=== PATIENT | male | born 1960 | race Caucasian/White ===

== ENCOUNTER 2020-04-30 16:25 | Inpatient (IN) | payer OTHER ==
[2020-04-30] VITALS (15 sets, daily range): BP systolic 81–120; BP diastolic 56–94
[~2020-04-30] VITALS: Ht 177.8 cm; Wt 70.0 kg
--- NOTE | 2020-04-30 16:28 | NUR ---
PATIENT TO ROOM VIA WHEELCHAIR AND PHYSICIAN NOTIFIED OF PATIENT STSTUS
[2020-04-30] MEDS ORDERED: FLOVENT DI250 MCG/BL PO (17:35)
[2020-04-30] MEDS ORDERED: GERI-TUSSI100 MG/51 PO (17:37)
--- NOTE | 2020-04-30 17:37 | NUR ---
PT RESTING IN BED. 2L/NC PLACED ON PT PER MD ORDERS. 97% SATURATIONS. VITALS STABLE ON MONITOR. CALL LIGHT WITHIN REACH, SECURITY AT BEDSIDE.
[2020-04-30 17:44] LABS: HEMATOCRIT 46.9 % (39.0-50.0); HEMOGLOBIN 14.9 g/dl (14.0-18.0); IMMATURE GRANULOCYTES 0.4 % (0.0-5.0); MEAN CELL VOLUME 89.3 fL CALC (80.0-100.0); MEAN CORPUSCULAR HGB 28.4 pG CALC (26.0-32.0); MEAN CORPUSCULAR HGB CONC 31.8 g/dL CAL (32.0-36.0); NEUT# 6.5 thou/uL (1.82-7.42); RED BLOOD COUNT 5.25 mill/uL (4.70-6.10); RED CELL DISTRI WIDTH 14.4 % (11.5-15.5)
[2020-04-30 18:04] LABS: ALBUMIN 3.5 g/dL (3.2-5.0); ALKALINE PHOSPHATASE 62 u/l (38-126); ANION GAP 11 (6-22 (CALC)); BILIRUBIN, TOTAL 0.7 mg/dL (0.0-1.4); BUN 25 mg/dL (9-20); BUN/CREATININE RATIO 18 (12-20 (CALC)); CARBON DIOXIDE 26 mmol/l (22-30); CHLORIDE 106 mmol/l (95-108); CREATININE 1.4 mg/dL (0.7-1.3); GFR 52 ML/MIN (>=60 (CALC)); GFR FOR AFR.AMER. > 60 ML/MIN (>=60 (CALC)); LIPASE 78 u/l (23-300); POTASSIUM 4.4 mmol/l (3.5-5.1); SGOT/AST 132 u/l (17-59); SODIUM 138 mmol/l (137-146)
--- NOTE | 2020-04-30 18:48 | NUR ---
PT RESTING COMFORTABLE. BIPAP IN PLACE. IV MEDS INFUSING WITHOUT DIFFICULTY. VITALS STABLE ON MONITOR. SECUIRTY AT BEDSIDE.
--- NOTE | 2020-04-30 18:58 | NUR ---
REPORT GIVEN TO MARSHA PAIGE.
--- NOTE | 2020-04-30 19:00 | NUR ---
RECEIVED REPORT FROM BOUBACAR, RN. PT ADMITTED. GUARDS OUTSIDE DOOR. PT HAS LEFT ANKLE CUFFED TO THE BED. 950CC OF URINE OUT.
--- NOTE | 2020-04-30 19:40 | NUR ---
REPORT GIVEN TO MARSHA FRIED
--- NOTE | 2020-04-30 19:50 | NUR ---
Admission Note Report Given to: MARSHA FRIED Transported by: Wheelchair X Stretcher Transported with: X Nurse Transporter X Patent IV X O2 X Human Resources Services Specialist Location: X ICU MS2 NITRO DRIP INFUSING.
--- NOTE | 2020-04-30 20:20 | NUR ---
PT WAS ADMIITED TO ICU VIA STRETCHER. PT BEING ADMITTED FOR DIAGNOSIS OF SOB RELATED TO COVID POSITIVE. PT IS ALERT AND ORIENTED AND ABLE TO MAKE NEEDS KNOWN. WHEEZING NOTED IN UPPER LOBES OF LUNGS AND DIMINISHED IN LOWER LOBES. CURRENTLY ON NITRO DRIP AT 5MCG/MIN AND BP 96/81 HR 121 RESPIRATIONS 37 BREATHS PER MINUTE. PT HAS PITTING EDEMA +2 IN BILATERAL LOWER EXTREMITIES. ABDOMEN IS DISTENDED AND FIRM BUT BOWEL SOUNDS NOTED IN ALL QUADRANTS. STATED HE HAD SMALL BOWEL MOVEMENT TODAY. RESPIRATORY THERAPIST GIVING DUONEB TREATMENT AND PT REMOVED FROM BIPAP AND PLACED ON 2LNC. HOB ELEVATED AND WILL CONTINUE TO OBSERVE.
--- NOTE | 2020-04-30 20:35 | NUR ---
BP 98/72hr 118 AND RESPIRATION IS 32 AND LABORED. HEART RHYTHM CONTINUES TO BE TACYCARDIC. PT STATES HE FEELS BETTER. CONTINUES ON OXYGEN THERAPY AT 2LNC AND OXYGEN LEVEL 98%.
--- NOTE | 2020-04-30 20:48 | NUR ---
PT IN BED WITH HOB ELEVATED. NITRO TITRATED UP TO 15MCG/MIN DUE TO RAPID RESPIRATIONS. BP 120/94 HR 118 AND RESPIRATION ARE 32 BREATHS PER MINUTE. CONTINUES ON 2LNC WITH O2 SAT 98%. WILL CONTINUE TO OBSERVE.
--- NOTE | 2020-04-30 21:08 | NUR ---
PT CONTINUES ON NITRO DRIP AT 20MCG/MIN. RESPIRATION CONITNUES TO BE RAPID AT 32 BREATHS PER MINUTE. HEART RHYTHM CONTINUES TO TACHYCARDIC AT 121 BPM. PT STATES HE FEELS MUCH BETTER. NON PRODUCTIVE COUGH NOTED. CONTINUES ON 2LNC. FLUIDS GIVEN AND TOLERATED WELL.
--- NOTE | 2020-04-30 21:40 | NUR ---
BP DECREASED TO 85/68. HR 114 AND RESPIRATION 30 BREATHS PER MINUTE. mD CALLED AND MADE AWARE THAT NITRO DRIP WAS STOPPED DUE TO LOW BP AND NORMAL SALINE RUNNING AT 150ML PER HOUR TO INCREASE BP. MD GAVE ORDER TO GOR MAGNESIUM LEVEL AND EKG BY RESPIRATORY. RECHECKED BP AND 101/71. NORMAL SALINE CURRENTLY RUNNING AT 50ML/HR AND PRESCRIBED.
--- NOTE | 2020-04-30 22:00 | NUR ---
EKG WAS DONE AND SCANNED SHOWS SINUS TACHYCARDIA. PT IN BED WITH EYES OPEN WATCHING TV AND CALM AND COOPERATIVE. AFEBRILE TEMPT 97.2. HR 112 AND BP 98/56. HOB ELEVATED. CONTINENT OF B/B ANF USES URINAL WITH NO COMPLICATIONS. IV SITE TO RIGHT AC IS INTACT WITH NO S/S OF INFECTION/INFILTRATION.
--- NOTE | 2020-04-30 23:10 | NUR ---
RESPIRATORY THERAPIST IN ROOM WITH PT GIVING NEBULIZER TREATMENT AND PT TOLERATING WELL. PT TO BE PLACED BACK ON BIPAP TO FACILITATE BREATHING PER PT REQUEST PT HAS GAURDS AT BEDSIDE. BP 102/68 HR 112 RESPIRATIONS 28 BEATS PER MINUTE. MEDICATIONS GIVEN PRESCRIBED. DENIES PAIN OR DISCOMFORT. NORMAL SALINE 0.9% RUNNING AT 50ML/HR AND TOLERATING WELL. WILL CONTINUE TO OBSERVE
[2020-05-01] VITALS (11 sets, daily range): BP systolic 79–126; BP diastolic 61–83
--- NOTE | 2020-05-01 00:54 | NUR ---
pt in bed with eyes closed. no s/s of respiratory distress. O2 sat 97% on bi-pap. Pt denies pain and distress. bp 121/74 HR 110 Respiratory 26 breaths per minute. Continent of b/b and uses urinal with no complications noted. Knee high teds in place. Troponin was drawn by lab. Wheezing noted in bilateral upper lung which has improved from admission. Tolerating fluids well. will continue to observe
--- NOTE | 2020-05-01 01:00 | NUR ---
pt in bed with eys closed. Able to make needs known and easily aroused. Respirations are even and nonlabored. continues with Bi-pap in place to faciltate breathing. HOB elevated and call light within reach will continue to observe. nonproductive cough noted. Gaurds continue at bedside.
--- NOTE | 2020-05-01 02:00 | NUR ---
Pt in bed with eyes closed. No respiratory distress noted. will continue to observe
--- NOTE | 2020-05-01 03:25 | NUR ---
Pt in bed with eyes closed. Continues on Bipap with no respiratory distress noted. No audible wheezing noted. HOB elevated. Knee high Miguel hose in place. Call light within reacg. Will continue to observe
--- NOTE | 2020-05-01 04:15 | NUR ---
PT IN BED WITH EYES CLOSED. NO S/S OF DISTRESS. EASILY AROUSED. CONTINUES ON BIPAP AT 97-98%. CALL LIGHT WITHIN REACH. CONTINUES WITH GAURDS AT BEDSIDE. WILL CONTINUE TO OBSERVE.
[2020-05-01 05:24] LABS: URINE BILIRUBIN - DIPSTICK NEGATIVE (NEGATIVE); URINE BLOOD DIPSTICK NEGATIVE (NEGATIVE); URINE COLOR YELLOW; URINE GLUCOSE - DIPSTICK NEGATIVE (NEGATIVE); URINE KETONE TRACE mg/dL (NEGATIVE); URINE LEUK ESTERASE NEGATIVE (NEGATIVE); URINE NITRITE - DIPSTICK NEGATIVE (Negative); URINE PROTEIN - DIPSTICK NEGATIVE (NEG-TRACE); URINE UROBILINOGEN - DIPSTICK 0.2 E.U./dL (0.2)
--- NOTE | 2020-05-01 05:30 | NUR ---
MD BURDICK AWARE OF PT RUNNING VTACH GREATER THAN 2 3-4 TIMES AN HOURS AND NO NEW ORDERS AT THIS TIME. NO NEW ORDERS AT THIS TIME. PT DENIES CHEST PAIN/S/S OF DISTRESS. TOLERATING FLUIDS WELL. HOB ELEVATED AND BI-PAP REMOVED AND PLACED ON 2LNC WITH O2 SAT 97%. CALL LIGHT IS WITHIN REACH. WILL CONTINUE TO OBSERVE. DECLINED FOOD OFFERED STATES HE WILL WAIT TO EAT BREAKFAST
[2020-05-01 05:43] LABS: HEMOGLOBIN 14.5 g/dl (14.0-18.0); IMMATURE GRANULOCYTES 0.5 % (0.0-5.0); MEAN CELL VOLUME 89.6 fL CALC (80.0-100.0); MEAN CORPUSCULAR HGB 28.9 pG CALC (26.0-32.0); MEAN CORPUSCULAR HGB CONC 32.2 g/dL CAL (32.0-36.0); NEUT# 5.22 thou/uL (1.82-7.42); RED BLOOD COUNT 5.02 mill/uL (4.70-6.10); RED CELL DISTRI WIDTH 14.4 % (11.5-15.5)
[2020-05-01 06:11] LABS: ALBUMIN 3.4 g/dL (3.2-5.0); ALKALINE PHOSPHATASE 60 u/l (38-126); ANION GAP 14 (6-22 (CALC)); BILIRUBIN, TOTAL 0.8 mg/dL (0.0-1.4); BUN 22 mg/dL (9-20); BUN/CREATININE RATIO 20 (12-20 (CALC)); CALCULATED LDLCHOLESTEROL 90 mg/dL (62-129 (CALC)); CARBON DIOXIDE 22 mmol/l (22-30); CHLORIDE 106 mmol/l (95-108); CHOLESTEROL HDL RATIO 4.2 (<4.4 (CALC)); CREATININE 1.1 mg/dL (0.7-1.3); GFR > 60 ML/MIN (>=60 (CALC)); GFR FOR AFR.AMER. > 60 ML/MIN (>=60 (CALC)); HDL CHOLESTEROL 35 mg/dL (>=40); MAGNESIUM 1.9 mg/dL (1.6-2.3); POTASSIUM 4.5 mmol/l (3.5-5.1); SGOT/AST 88 u/l (17-59); SODIUM 138 mmol/l (137-146); TOTAL CHOLESTEROL 145 mg/dl (0-199); TOTAL TRIGLYCERIDES 102 mg/dl (30-149); VLDL CHOLESTROL 20 mg/dl (4-45 (CALC))
--- NOTE | 2020-05-01 07:12 | NUR ---
PT SEEN AWAKE, ALERT, ORIENTED X 3. LUNGS ARE SLIGHTLY COARSE THROUGHOUT WITH DIMINISHED RIGHT BASE, 2 LPM NC. IV HEPLOCKED. TEDs IN PLACE. PT AWARE OF HIS BEING COVID POSITIVE. GUARDS X 2 POSITIONED OUTSIDE ROOM.
--- NOTE | 2020-05-01 07:22 | NUR ---
PAKO STANDBY. PT ON 3L MO.
--- NOTE | 2020-05-01 08:59 | NUR ---
NEB TX NOT GIVEN PENDING LAB RESULTS
--- NOTE | 2020-05-01 14:22 | NUR ---
PT UNEVENTFUL AFTERNOON, RESTS IN THE BED IN NO DISTRESS. NC 1 LTR SHOWS 94-96%, NO SHORTNESS OF BREATH OR CHEST PAIN.
--- NOTE | 2020-05-01 19:20 | NUR ---
awake. nad. o2 cont per nc. freelance art director shows sinus tach freq pvcs. #20 rac. po fluids restricted. voids per urinal. shackles to lt ankle. fall & air/contact precautions & guards x2 @ bedside.
--- NOTE | 2020-05-01 22:00 | NUR ---
eyes closed. nad. director of cardiac cath lab shows sinus tach hr 120.
[2020-05-02] VITALS (11 sets, daily range): BP systolic 96–131; BP diastolic 52–87
--- NOTE | 2020-05-02 00:01 | NUR ---
eyes closed. nad. o2 cont per nc. radiographer cardiac catheterization shows sinus tach hr 108. guards x2 @ bedside.
--- NOTE | 2020-05-02 02:00 | NUR ---
resting quietly. nad. front desk monitor shows sinus tach hr 112.
--- NOTE | 2020-05-02 05:00 | NUR ---
[facility] staff called this television writer. update given.
--- NOTE | 2020-05-02 05:45 | NUR ---
amb self to br for bm then back to bed. kostas well.
--- NOTE | 2020-05-02 07:40 | NUR ---
ASSESSMENT IS COMPLETED: IV SITE IS FREE FROM REDNESS OR EDEMA. HR IS REG,PULSES ARE STRONG X4, ABD IS SOFT WITH ACTIVE BS. BREATH SOUNDS ARE CELAR AND DIMINISHED. O2 @ 3LITERS WITH NC. 2 GUARDS OUTSIDE OF THE ROOM. NO DISTRESS NOTED.
--- NOTE | 2020-05-02 10:01 | NUR ---
PT CONTINEUS TO THROW EXTRA BEATS.
--- NOTE | 2020-05-02 12:00 | NUR ---
MARGARITA LARSON IN TO SEE DR MARINA RE: VTACH, WILL REEVALUATE A FAR DISCHARGE PLANS . DISCHARGE PLANS ARE ON HOLD AT THIS TIME. WILL KEEP A CLOSE EYE ON PT WITH LABS AND EKG RATE. CONTINUE WITH 2 GUARDS.
--- NOTE | 2020-05-02 12:00 | NUR ---
PT IS RELAXING IN BED WITH NO DISTRESS NTOED, IV SITE IS FREE FROM REDNESS OR EDEMA.
[2020-05-02 12:39] LABS: ANION GAP 16 (6-22 (CALC)); BUN 34 mg/dL (9-20); BUN/CREATININE RATIO 27 (12-20 (CALC)); CARBON DIOXIDE 22 mmol/l (22-30); CHLORIDE 103 mmol/l (95-108); CREATININE 1.3 mg/dL (0.7-1.3); GFR 56 ML/MIN (>=60 (CALC)); GFR FOR AFR.AMER. > 60 ML/MIN (>=60 (CALC)); MAGNESIUM 2.2 mg/dL (1.6-2.3); SODIUM 136 mmol/l (137-146)
--- NOTE | 2020-05-02 14:03 | NUR ---
SPOKE WITH DR MARINA WILL WAIT UNTIL TOMORROW DUE TO IRREGULAR HEART RATE AND INCREASED PVC'S WITH SOME V TACH.
--- NOTE | 2020-05-02 15:56 | NUR ---
PT HAS TAKEN THE O2 OFF SATS RUN FROM 80-97%
--- NOTE | 2020-05-02 16:15 | NUR ---
PT REMAINS RELAXING IN BED INFORMED OF WAITING UNTIL TOMORROW. DUE TO HEART RYTHM. VERBALIZED UNDERSTANDING. 2 GUARDS REMAIN AT BEDSIDE
--- NOTE | 2020-05-02 18:15 | NUR ---
PT IS RELAXING IN BED WITH NO DISTRESS NOTED. HEART MONITOR CONTINUES TO SHOW PVC'S OCCASIONAL VT. O2 COMES UP AND DOWN 82-94% ON RA
--- NOTE | 2020-05-02 20:15 | NUR ---
PATIENT IS AWAKE, ORIENTED X4. POC DISCUSSED, NURSE ASSESSMENT PERFORMED. NO COMPLAINTS, IS ON RA, O2 SAT 96%. RAC 20 G IV INTACT. SR/ST ON TELEMETRY, WITH FREQUENT PVC'S, BIGEMINY/TRIGEMINY. BP WNL. LEFT LEG SHACKLED TO BED, TWO GUARDS OUTSIDE OF GLASS DOOR. VARINDER HOSE IN PLACE. SELF REPOSITIONS. CALL LIGHT WITHIN REACH.
--- NOTE | 2020-05-02 21:15 | NUR ---
PATIENT REQUESTS TO GO TO BATHROOM. GUARD IN ROOM TO UNSHACKLE FROM BED. PATIENT HAS A STEADY GAIT, HAS A BM. NO ACUTE DISTRESS SHOW. BACK IN BED, LEFT LEG SHACKLED TO BED BY GUARD.
[2020-05-03] VITALS (8 sets, daily range): BP systolic 91–106; BP diastolic 54–84
--- NOTE | 2020-05-03 00:45 | NUR ---
PATIENT REPORTS HE STARTED TO COUGH AND BECAME SOB, PLACED HIM ON NC 2 L/MIN, O2 SAT 97%. NO OTHER COMPLAINTS, WILL CONTINUE TO MONITOR.
--- NOTE | 2020-05-03 03:50 | NUR ---
NURSE SHIN ASSISTED PATIENT TO RESTROOM, GUARD AT BEDSIDE. PATIENT REPORTS EPISODE OF DIARRHEA. WILL CONTINUE TO MONITOR.
--- NOTE | 2020-05-03 05:13 | NUR ---
NURSE SILVA FROM [facility] CALLED HERE FOR UPDATES ON PATIENT, UPDATES GIVEN.
--- NOTE | 2020-05-03 06:18 | NUR ---
PATIENT TOLERATES HEPARIN SC, SOLUMEDROL IV GIVEN AND VENTOLIN INHALER. NO COMPLAINTS OR NEEDS AT THIS TIME. IS ON 2 L/MIN NC, O2 96%, DOES SOUND WHEEZY.
[2020-05-03 06:22] LABS: ANION GAP 16 (6-22 (CALC)); BUN 40 mg/dL (9-20); BUN/CREATININE RATIO 31 (12-20 (CALC)); CARBON DIOXIDE 21 mmol/l (22-30); CHLORIDE 102 mmol/l (95-108); CREATININE 1.3 mg/dL (0.7-1.3); GFR 56 ML/MIN (>=60 (CALC)); GFR FOR AFR.AMER. > 60 ML/MIN (>=60 (CALC)); MAGNESIUM 2.4 mg/dL (1.6-2.3); POTASSIUM 4.8 mmol/l (3.5-5.1); SODIUM 134 mmol/l (137-146)
--- NOTE | 2020-05-03 07:35 | NUR ---
ASSESSMENT IS COMPLTEED: IV SITE IS FREE FROM REDNESS OR EDEMA. HR IS REG,PULSE ARE STRONG X4, ABD IS SOFT WITH ACTIVE BS. BREATH SOUNDS ARE CLEAR AND DIMINISHED.2 GUARDS AT BEDSIDE,
--- NOTE | 2020-05-03 09:30 | NUR ---
DR MARINA IN TO VISIT WITH PT
--- NOTE | 2020-05-03 09:55 | NUR ---
PT WANTING TO USE THE BATHROOM AND THEN GET IN THE CHAIR.
--- NOTE | 2020-05-03 10:13 | NUR ---
PT IS SITTING IN THE CHAIR.
--- NOTE | 2020-05-03 10:29 | NUR ---
PT CONTINUES IN THE CHAIR. NO DISTRESS NOTED.
--- NOTE | 2020-05-03 12:30 | NUR ---
PT IS RELAXING IN THE CHAIR. NO DISTRESS NOTED. IV SITE IS FREE FROM REDNESS OR EDEMA.
--- NOTE | 2020-05-03 13:10 | NUR ---
REPORT REC FROM DANIEL ALLEN
--- NOTE | 2020-05-03 13:35 | NUR ---
PT CARE RESUMED BY THIS ELECTRICAL MECHANIC. PT SITTING IN RECLINER. A&O X3. AUDIBLE WHEEZING NOTED. PT CURRENTLY ON ROOM AIR. CALL LIGHT IN REACH. CONTINUE TO MONITOR.
--- NOTE | 2020-05-03 14:51 | NUR ---
PT SITTING IN BED. X2 GUARDS OUTSIDE OF ROOM. NO NEEDS AT THIS TIME. CALL LIGHT IN REACH. CONTINUE TO MONITOR.
--- NOTE | 2020-05-03 17:36 | NUR ---
PT LAYING IN BED. NO DISTRESS NOTED. CONTINUE TO MONITOR.
--- NOTE | 2020-05-03 19:40 | NUR ---
awake. lying in bed in semifowlers position. denies resp distress off o2. desk monitor shows sinus rhythm freq pvcs hr 98. #20 rac saline lock. po fluids restricted. voids per urinal. fall & air/contact precautions cont. spoke to pt about prone position but declined @ present. guards x2 remain.
--- NOTE | 2020-05-03 22:00 | NUR ---
watching tv. no distress. bilingual teacher assistant shows sinus rhythm pvcs hr 100.
[2020-05-04] VITALS (31 sets, daily range): BP systolic 81–140; BP diastolic 00–87
--- NOTE | 2020-05-04 00:01 | NUR ---
eyes closed. no distress. rn cardiac rehab shows sinus rhythm pvcs hr 96.
--- NOTE | 2020-05-04 02:00 | NUR ---
resting quietly. resps even & unlabored. nad. residential monitor shows sius rhythm pvcs hr 94.
--- NOTE | 2020-05-04 04:00 | NUR ---
eyes closed. no apparent distress. diplomatic interpreter shows sinus rhythm freq pvcs hr 98.
--- NOTE | 2020-05-04 05:40 | NUR ---
lab here. blood drawn.
[2020-05-04 05:57] LABS: HEMATOCRIT 46.1 % (39.0-50.0); HEMOGLOBIN 14.9 g/dl (14.0-18.0); IMMATURE GRANULOCYTES 0.9 % (0.0-5.0); MEAN CELL VOLUME 90.2 fL CALC (80.0-100.0); MEAN CORPUSCULAR HGB 29.2 pG CALC (26.0-32.0); MEAN CORPUSCULAR HGB CONC 32.3 g/dL CAL (32.0-36.0); NEUT# 10.35 thou/uL (1.82-7.42); RED BLOOD COUNT 5.11 mill/uL (4.70-6.10); RED CELL DISTRI WIDTH 14.5 % (11.5-15.5)
[2020-05-04 06:13] LABS: ANION GAP 12 (6-22 (CALC)); BUN 41 mg/dL (9-20); BUN/CREATININE RATIO 38 (12-20 (CALC)); CARBON DIOXIDE 25 mmol/l (22-30); CHLORIDE 104 mmol/l (95-108); CREATININE 1.1 mg/dL (0.7-1.3); GFR > 60 ML/MIN (>=60 (CALC)); GFR FOR AFR.AMER. > 60 ML/MIN (>=60 (CALC)); POTASSIUM 4.9 mmol/l (3.5-5.1); SODIUM 135 mmol/l (137-146)
--- NOTE | 2020-05-04 06:58 | NUR ---
REPORT REC FROM BRANDON ALLEN
--- NOTE | 2020-05-04 07:10 | NUR ---
PT LAYING IN BED. A&O X3. NO DISTRESS NOTED. X2 GUARDS OUTSIDE OF ROOM. NEWS CLIPPING CUTTER COUGH NOTED. PT DENIES ANY SOB. CLEAR BREATH SOUNDS WITH CRACKLING IN BASES HEARD UPON AUSCULTATION. EDEMA NOTED TO BILATERAL FEET. X1 SHACKLE IN PLACE TO LT ANKLE. #20 RAC PATENT AND HEALTHY. ASSESSMENT COMPLETED. DISCUSSED POC. CALL LIGHT WITHIN REACH. CONTINUE TO MONITOR.
--- NOTE | 2020-05-04 09:50 | NUR ---
PT VTACH ON MONITOR, STRIP SHOWED TO DR MARINA. PT LAYING IN BED NO DISTRESS NOTED. CONTINUE TO MONITOR.
--- NOTE | 2020-05-04 10:02 | NUR ---
DR MARINA AT BEDSIDE
--- NOTE | 2020-05-04 11:26 | NUR ---
AMIODARONE BOLUS INITIATED. IV TO RAC PATENT.
--- NOTE | 2020-05-04 11:36 | NUR ---
AMIODARONE BOLUS COMPLETED. PT IN STABLE CONDITION. AMIODARONE DRIP INITIATED AT 1138 AM. WILL CONTINUE TO MONITOR
--- NOTE | 2020-05-04 12:28 | NUR ---
AMIODARONE DRIP IN PROGRESS AT 1 MG/MIN. VS STABLE, NO DISTRESS NOTED. COUPLET PVCS ON MONITOR. CONTINUE TO MONITOR.
--- NOTE | 2020-05-04 15:06 | NUR ---
CRACKLES HEARD ALONG WITH AUDITORY WHEEZING, EXCERTIONAL SOB NOTED. DR MARINA NOTIFIED. ORDER OBTAINED FOR 40 MG IV LASIX DAILY WITH FIRST DOSE TO BEGIN NOW. ORDER WRITTEN AND FAXED TO [facility].
--- NOTE | 2020-05-04 16:34 | NUR ---
AMIODARONE DRIP IN PROGRESS, CONTINUES AT 1MG/MIN. O2 VIA NC @2L APPLIED FOR PTS REPORT OF "SOB" . O2 CURRENTLY SUSTAINING AT 95-100% OF O2. BREATHING TECHNIQUES GIVEN TO PT. CALL LIGHT IN REACH. CONTINUE TO MONITOR.
--- NOTE | 2020-05-04 17:05 | NUR ---
ASSISTED PT TO BEDSIDE COMMODE, EXCERTIONAL SOB NOTED
--- NOTE | 2020-05-04 17:35 | NUR ---
RESPIRATIONS SHALLOW AND INCREASED. ESTEFANIA RT AT BEDSIDE OBTAINING ABG. BLADDER SCAN OBTAINED WITH 80 ML OF URINE NOTED IN SCAN.
--- NOTE | 2020-05-04 17:50 | NUR ---
MAINTENANCE INFUSION OF AMIODARONE DECREASED TO 0.5 MG/MIN.
--- NOTE | 2020-05-04 18:00 | NUR ---
UNABLE TO OBTAIN BLOOD PRESSURE. BP WEAK UPON MANUAL BP TAKE. RUFINA RN AT BEDSIDE TRYING TO OBTAIN BP.
--- NOTE | 2020-05-04 18:35 | NUR ---
DOPPLER USED TO FIND SYSTOLIC 80/00. AMIODORONE STOPPED.
--- NOTE | 2020-05-04 18:52 | NUR ---
ATTEMPT MADE TO CALL DR MARINA, NO ANSWER VOICEMAIL LEFT.
--- NOTE | 2020-05-04 19:01 | NUR ---
DR MARINA CALLED ANSWER VOICEMAIL LEFT
--- NOTE | 2020-05-04 19:11 | NUR ---
ATTEMPT MADE TO CALL DR MARINA NO ANSWER
--- NOTE | 2020-05-04 19:27 | NUR ---
CALL RETURNED BY DR MARINA. ORDERS REC BY THIS CLOTH SECONDS SORTER AND BRANDON ALLEN. Guillermo MARROQUIN RN AND Guillermo DELVALLE RN AT BEDSIDE ATTEMPTING TO INITIATE IV. PER LAINA 1L BOLUS, [place] POSITION, LEVOPHED ORDERED IF NEEDED. DOPPLER USED TO FIND SYSTOLIC 88/00 AND 90/00.
--- NOTE | 2020-05-04 19:30 | NUR ---
[id number] awake. remains in [place] position. denies distress but does c/o "i'm cold". o2 cont per nc. hall monitor shows sinus rhythm pvcs hr 82. #20 rac. ns bolus cont. fall & air/contact precautions cont. shackled to bed. guards x2 outside room. bp per doppler. unable to find additional iv site. requested supervisors assistance. kota rn & lillie peña arrived from er. #20 nichol & #20 lac started. levophed drip began as ordered. appears to have exaggerated resps(resps become rapid & pt moans) when staff is present in room. does not do it when this automobile service writer is watching him from desk. will cont to closely observe.
--- NOTE | 2020-05-04 20:16 | NUR ---
Cardinal Nakia Ricks called per machine sign writer in regards levophed order faxed STAT; machine sign writer request for med to be profiled
--- NOTE | 2020-05-04 21:30 | NUR ---
dr urbina called this customs entry writer. updated on pts condition. no new orders.
--- NOTE | 2020-05-04 23:50 | NUR ---
awake. no apparent distress. pt said "can i ask you a question? can that deisy put me back on that machine?" pt referring to bipap machine. pulse ox 98% on o2. instructed pt no need for machine. sonata 5mg po given.
[2020-05-05] VITALS (53 sets, daily range): BP systolic 95–128; BP diastolic 00–92
--- NOTE | 2020-05-05 00:30 | NUR ---
awakens easily. resps increase as described before. requested bathroom for bm. while getting oob pt vomitted clear liquid with few green specks. guards notified of need for br. assisted to br then back to bed. kostas well. denies nausea.
--- NOTE | 2020-05-05 02:00 | NUR ---
awake. watching tv. nad. secured entrance monitor shows sinus rhythm pvcs hr 84.
--- NOTE | 2020-05-05 04:00 | NUR ---
awake. nad. shipping and receiving assistant shows sinus rhythm pvcs hr 86.
--- NOTE | 2020-05-05 05:40 | NUR ---
blood drawn & sent to lab.
--- NOTE | 2020-05-05 06:00 | NUR ---
has had 350cc uop this shift. urine lt michael. no distress. o2 cont.
[2020-05-05 06:24] LABS: CREATININE 1.9 mg/dL (0.7-1.3); MAGNESIUM 2.7 mg/dL (1.6-2.3)
[2020-05-05 06:28] LABS: POTASSIUM 5.3 mmol/l (3.5-5.1)
[2020-05-05 06:38] LABS: HEMATOCRIT 51.4 % (39.0-50.0); HEMOGLOBIN 16.4 g/dl (14.0-18.0); MEAN CORPUSCULAR HGB CONC 31.9 g/dL CAL (32.0-36.0); RED BLOOD COUNT 5.65 mill/uL (4.70-6.10); RED CELL DISTRI WIDTH 14.3 % (11.5-15.5)
--- NOTE | 2020-05-05 06:45 | NUR ---
REPORT RECEIVED FROM MARQUES ALLEN. CARE ASSUMED.
[2020-05-05 06:47] LABS: NEUT# 18.74 thou/uL (1.82-7.42)
--- NOTE | 2020-05-05 07:00 | NUR ---
PT RESTING IN BED AWAKE. PT IS ALERT AND ORIENTED X3. SHIFT ASSESSMENT COMPLETED AT THIS TIME. IV PATENT X3. LEVOPHED DECREASED PER TITRATION CHARTING. PT ON ROOM AIR. 96%. CALL LIGHT IN REACH. WILL CONTINUE TO MONITOR.
--- NOTE | 2020-05-05 08:41 | NUR ---
DR MARINA AT BEDSIDE AT THIS TIME.
--- NOTE | 2020-05-05 09:11 | NUR ---
KWAME IGNACIO NOTIFIED OF CARDIOLOGY CONSULT.
--- NOTE | 2020-05-05 10:00 | NUR ---
PT RESTING IN BED. LEVOPHED HAS BEEN TITRATED OFF AT THIS TIME. CALL LIGHT IN REACH. WILL CONTINUE TO MONITOR
--- NOTE | 2020-05-05 12:00 | NUR ---
PT SET UP FOR NOON MEAL AT THIS TIME. PT RESP ARE EVEN AND UNLABORED. NO DISTRESS NOTED. CALL LIGHT IN REACH. WILL CONTINUE TO MONITOR.
--- NOTE | 2020-05-05 14:00 | NUR ---
PT RESTING IN BED AT THIS TIME. RESP ARE EVEN AND UNLABORED. NO DISTRESS NOTED. CALL LIGHT IN REACH. WILL CONTINUE TO MONITOR.
--- NOTE | 2020-05-05 15:25 | NUR ---
KWAME IGNACIO ORDERED MEXILITINE 200MG PO Q8H TO BE USED "HOME MED" FOR PT, WOULD NEED A RX SENT AND FILLED. HOWEVER, PT IS FROM [facility]. MEXILITINE IS NON FORMULARY HERE AND AT [facility], AND PT WILL NOT RECEIVE THIS MED ONCE DISCHARGED BACK TO [facility], SO PHARMACY/HOSPITAL WILL NOT PAY FOR THIS DRUG THRU DIRECT BILL W/ [employer]. EXPLAINED THIS TO KWAME. SHE SPOKE WITH DR MURDOCK, SAID THEY'LL BE IN CONTACT WITH DR MARINA RE: THEIR CONSULT. KWAME REPORTS PT IS UNABLE TO TOLERATE AMIODARONE PER DR HERNANDEZ NOTE. ASKED I F/U WITH CASE MANAGEMENT RE: TRANSITIONING ONCE D/C TO [facility]. SPOKE WITH CM, SHE IS GOING TO DO SOME DIGGING AND SEE WHAT OPTIONS ARE. PER KWAME, OK TO CANCEL ORDER FOR MEXILITINE AT THIS TIME.
--- NOTE | 2020-05-05 16:00 | NUR ---
PT RESTING IN BED AWAKE AND WATCHING TV. RESP ARE EVEN AND UNLABORED. NO DISTRESS NOTED. CALL LIGHT IN REACH. WILL CONTINUE OT MONITOR
--- NOTE | 2020-05-05 16:18 | NUR ---
FACILITY NURSE AND MD CALLED FOR UPDATE. UPDATE PROVIDED.
--- NOTE | 2020-05-05 19:00 | NUR ---
REPORT RECEIVED FROM Anahi PRYOR RN, CARE OF PT ASSUMED AT THIS TIME. PT RESTING IN BED AWAKE, APPEARS COMFORTABLE AND IN NO APPARENT DISTRESS. RESPIRATIONS REGULAR AND UNLABORED. HEMODYNAMICS STABLE ON MONITOR. X2 ANGLE SHEARER STATIONED OUTSIDE OF ROOM. CALL SALAZAR WITHIN REACH.
--- NOTE | 2020-05-05 21:15 | NUR ---
PHYSICAL ASSESMENT COMPLETE. PT LAYING IN BED WITH BLE SHACKLED TO BED, PT CALM AND COOPERATIVE. WATCHING TV. RESPIRATIONS REGULAR AND UNLABORED. LUNGS WITH WHEEZES THROUGHOUT. SP02 98% ON RA. PT REQUESTS L-AC SITE BE REMOVED DUE TO DISCOMFORT. SITE REMOVED PER PTS PREFERENCE. CATH INTACT. SCHEDULED MEDICATIONS ADMINISTERED. DAVON 20G WITH NS @ 50ML INFUSING, SITE PATENT. PLAN OF CARE REVIEWED. PT VERBALIZES UNDERSTANDING AND DENIES QUESTIONS. PT DENIES NEEDS AT THIS TIME. CALL SALAZAR WITHIN REACH, AGREE TO CALL PRN. CORRECTIONAL OFFICERS X2 STATIONED OUTSIDE OF ROOM.
--- NOTE | 2020-05-05 23:05 | NUR ---
PT LAYING IN BED WATCHING TV, APPEARS COMFORTABLE AND IN NO DISTRESS, CALL SALAZAR REMAINS WITHIN REACH.
[2020-05-06] VITALS (26 sets, daily range): BP systolic 96–124; BP diastolic 57–82
--- NOTE | 2020-05-06 | NUR ---
PT LAYING IN BED WITH EYES CLOSED, APPEARS TO BE SLEEPING COMFORTABLY. RESPIRATIONS REGULAR AND UNLABORED. NO APPARENT DISTRESS. CALL SALAZAR REMAINS WITHIN REACH.
--- NOTE | 2020-05-06 02:00 | NUR ---
6 BEAT RUN OF VTACH ON MONITOR, PT SLEEPING.
--- NOTE | 2020-05-06 04:00 | NUR ---
PT LAYING IN BED WITH EYES CLOSED, APPEARS TO BE SLEEPING COMFORTABLY. RESPIRATIONS REGULAR AND UNLABORED. NO APPARENT DISTRESS. CALL SALAZAR REMAINS WITHIN REACH.
--- NOTE | 2020-05-06 06:11 | NUR ---
PT LAYING IN BED WATCHING TV, NO CHANGES FROM BASELINE ASSESMENT. DENIES ANY NEEDS AT THIS TIME. CO X2 REMAIN STATIONED OUTSIDE OF ROOM. CALL SALAZAR REMAINS WITHIN REACH, AGREES TO CALL PRN.
--- NOTE | 2020-05-06 06:45 | NUR ---
REPORT RECEIVED FROM SILVIA LARSON. CARE ASSUMED.
--- NOTE | 2020-05-06 06:56 | NUR ---
LAB AT BEDSIDE AT THIS TIME.
--- NOTE | 2020-05-06 07:10 | NUR ---
PT RESTING IN BED AWAKE. PT REMAINS ALERT AND ORIENTED X3. SHIFT ASSESSMENT COMPLETED AT THIS TIME. IV PATENT X1. PT ASSISTED UP TO RECLINER AT BEDSIDE. CALL LIGHT IN REACH. WILL CONTINEUE TO MONITOR.
--- NOTE | 2020-05-06 08:03 | NUR ---
DR JEAN BAPTISTE AT BEDSIDE.
[2020-05-06 08:24] LABS: HEMATOCRIT 47.5 % (39.0-50.0); HEMOGLOBIN 15.3 g/dl (14.0-18.0); IMMATURE GRANULOCYTES 1.2 % (0.0-5.0); MEAN CELL VOLUME 90.8 fL CALC (80.0-100.0); MEAN CORPUSCULAR HGB 29.3 pG CALC (26.0-32.0); MEAN CORPUSCULAR HGB CONC 32.2 g/dL CAL (32.0-36.0); NEUT# 9.16 thou/uL (1.82-7.42); RED BLOOD COUNT 5.23 mill/uL (4.70-6.10)
[2020-05-06 08:40] LABS: ALBUMIN 3.4 g/dL (3.2-5.0); ALKALINE PHOSPHATASE 54 u/l (38-126); BUN 53 mg/dL (9-20); BUN/CREATININE RATIO 44 (12-20 (CALC)); CARBON DIOXIDE 18 mmol/l (22-30); CHLORIDE 103 mmol/l (95-108); CREATININE 1.2 mg/dL (0.7-1.3); GFR > 60 ML/MIN (>=60 (CALC)); GFR FOR AFR.AMER. > 60 ML/MIN (>=60 (CALC)); SODIUM 131 mmol/l (137-146); TOTAL PROTEIN 5.9 g/dL (6.3-8.2)
--- NOTE | 2020-05-06 09:30 | NUR ---
SET UP PT TO WASH UP. PT ABLE TO WASH SELF UP.
[2020-05-06 10:03] LABS: ANION GAP 16 (6-22 (CALC)); BILIRUBIN, TOTAL 2.8 mg/dL (0.0-1.4); POTASSIUM 5.5 mmol/l (3.5-5.1)
[2020-05-06 10:04] LABS: SGOT/AST 1691 u/l (17-59)
--- NOTE | 2020-05-06 10:31 | NUR ---
PT REMAINS UP IN RECLINER AT BEDSIDE. RESP ARE EVEN AND UNLABORED. NO DISTRESS NOTED. CALL LIGHT IN REACH. WILL CONTINUE TO MONITOR
--- NOTE | 2020-05-06 12:00 | NUR ---
PT SITTING UP IN RECLINER AT BEDSIDE. SET UP FOR NOON MEAL. RESP ARE EVEN AND UNLABORED. NO DISTRESS NOTED. CALL LIGHT IN REACH. WILL CONTINUE TO [facility].
--- NOTE | 2020-05-06 14:20 | NUR ---
HOME THEATER EXPERIENCE EXPERT AT BEDSIDE AT THIS TIME. GUARD PRESENT IN ROOM
--- NOTE | 2020-05-06 16:12 | NUR ---
PT RESTING IN BED WATCHING TV. RESP ARE EVEN AND UNLABORED. NO DISTRESS NOTED. CALL LIGHT IN REACH. WILL CONTINUE TO MONITOR.
--- NOTE | 2020-05-06 18:16 | NUR ---
pt sittingup in bed watching tv. resp are even and unlabored no distress noted. call light in reach. will continue to monitor
--- NOTE | 2020-05-06 19:00 | NUR ---
RECEIVED REPORT FROM NURSE KELSEY, PATIENT RESTING IN BED IN ANY RESPIRATORY DISTRESS, PRACTICE ADMINISTRATOR STATIONED OUTSIDE ROOM CALL LIGHT AT REACH.
--- NOTE | 2020-05-06 19:46 | NUR ---
PATIENT ALERT ORINTED ABLE TO MAKE NEEDS KNONW, WITH ONGOING IV 1/2 NS @ 50 CC/HR INFUSING WELL ON DAVON G 20, IV SITE APPEARS HEALTHY, BREATHING EVEN UNLABORED, CURRENTLY EATING SUPPER, LUNG SOUNDS CLEAR, LBM 05/06/20, ACTIVE BOWEL SOUNDS ON ALL QUADRANT, STRONG PERIPHERAL PULSES, DENIES PAIN OR DISCOMFORTS AT THIS TIME, SKIN INTACT PATIENT LEFT LEG SHACKLED TO BED SKIN IMTACT, GUARDS AT BEDSIDE, REMAINS ON AIR CONTACT PRECAUTION, CALL LIGHT AT REACH.
--- NOTE | 2020-05-06 22:08 | NUR ---
PATIENT RESTING WITH EYES CLOSED NOT IN DISTRESS, PATIENT HAD 5 BEATS OF VTACH.
[2020-05-07] VITALS (14 sets, daily range): BP systolic 93–123; BP diastolic 53–88
--- NOTE | 2020-05-07 00:12 | NUR ---
PATIENT RESTING IN BED WITH EYES CLOSED, BREATHING EVEN UNLABORED, CALL LIGHT AT [facility].
--- NOTE | 2020-05-07 02:00 | NUR ---
PATIENT RESTING IN BED EYES CLOSED, BREATHING UNLABORED, CALL LIGHT AT REACH.
--- NOTE | 2020-05-07 03:42 | NUR ---
ASSISTANT PROFESSOR OF MUSIC SHOW 4 RUNS OF VTACH, PATIENT ASYMPTOMATIC, RESTING WITH EYS CLSOED, NO DISCOMFORTS NOTED, CALL LIGHT AT REACH.
--- NOTE | 2020-05-07 04:28 | NUR ---
RECEIVED A PHONE CALL AT THIS TIME FROM [facility], UPDATED.
--- NOTE | 2020-05-07 05:41 | NUR ---
.NET PROGRAMMER AT BEDSIDE FOR MORNING LAB WORK.
--- NOTE | 2020-05-07 06:06 | NUR ---
DUE MEDICATION GIVEN, DENIES PAIN OR SHORTNESS OF BREATH WLL CONTINUE TO MONITOR, CALL LIGHT AT REACH.
[2020-05-07 06:29] LABS: HEMATOCRIT 46.4 % (39.0-50.0); HEMOGLOBIN 14.7 g/dl (14.0-18.0); MEAN CELL VOLUME 90.1 fL CALC (80.0-100.0); MEAN CORPUSCULAR HGB 28.5 pG CALC (26.0-32.0); MEAN CORPUSCULAR HGB CONC 31.7 g/dL CAL (32.0-36.0); RED BLOOD COUNT 5.15 mill/uL (4.70-6.10); RED CELL DISTRI WIDTH 14.1 % (11.5-15.5)
--- NOTE | 2020-05-07 06:45 | NUR ---
REPORT RECEIVED FROM ANNA LARSON. CARE ASSUMED.
[2020-05-07 06:48] LABS: INTERNATIONAL NORMALIZED RATIO 1.4 RATIO (0.7-1.3); PROTHROMBIN TIME 13.6 SECONDS (9.0-12.5)
[2020-05-07 06:56] LABS: ALBUMIN 3.3 g/dL (3.2-5.0); ALKALINE PHOSPHATASE 64 u/l (38-126); BILIRUBIN, TOTAL 2.7 mg/dL (0.0-1.4); BUN 39 mg/dL (9-20); BUN/CREATININE RATIO 36 (12-20 (CALC)); CHLORIDE 103 mmol/l (95-108); CREATININE 1.1 mg/dL (0.7-1.3); GFR > 60 ML/MIN (>=60 (CALC)); GFR FOR AFR.AMER. > 60 ML/MIN (>=60 (CALC)); MAGNESIUM 2.8 mg/dL (1.6-2.3); SGOT/AST 605 u/l (17-59); SODIUM 132 mmol/l (137-146); TOTAL PROTEIN 5.5 g/dL (6.3-8.2)
[2020-05-07 07:11] LABS: ANION GAP 11 (6-22 (CALC)); CARBON DIOXIDE 23 mmol/l (22-30); POTASSIUM 5.2 mmol/l (3.5-5.1)
--- NOTE | 2020-05-07 07:30 | NUR ---
PT RESTING IN BED AWAKE AND WATCHING TV. PT IS ALERT AND ORIENTED X3. SHIFT ASSESSMENT COMPLETED AT THIS TIME. IV PATENT X1. CALL LIGHT IN REACH. WILL CONTINUE TO MONITOR.
--- NOTE | 2020-05-07 08:31 | NUR ---
DR MARINA AT BEDSIDE AND TALKING WITH FACILITY.
--- NOTE | 2020-05-07 08:45 | NUR ---
[facility] PHONED TO INITIATE TRANSFER INFO PROVIDED TO CRISTINO. PAPERWORK FAXED. THERE ARE NO BEDS AVAILABLE AT THIS TIME HOWEVER ONE BECOMES AVAILABLE WE WILL BE NOTIFIED.
--- NOTE | 2020-05-07 09:10 | NUR ---
COVID NASAL SWAB OBTAINED
--- NOTE | 2020-05-07 09:46 | NUR ---
NIHARIKA FROM LAB PHONED WITH POSITIVE PCR SWAB. CRISTINO AT [facility] PHONED FOR UPDATE ON 05/07/19 POSITIVE COVID PCR. ASKED IF WE SHOULD DO THE ANTIGEN SWAB INSTEAD. CRISTINO ASKED FOR ANTIGEN SWAB. ORDER PLACED FOR ANTIGEN.
--- NOTE | 2020-05-07 10:07 | NUR ---
KWAME IGNACIO APRN AT BEDSIDE AT THIS TIME FOR CARDIOLOGY CONSULT
--- NOTE | 2020-05-07 10:19 | NUR ---
COVID ANTIGEN SWAB OBTAINED AT THIS TIME.
--- NOTE | 2020-05-07 10:50 | NUR ---
RADIOLOGY AT [facility] FOR PORTABLE CXR
--- NOTE | 2020-05-07 12:00 | NUR ---
PT SITTING UP IN RECLINER AT BEDSIDE. EATING LUNCH. RESP ARE EVEN AND UNLABORED. NO DISTRESS NOTED. CALL LIGHT IN REACH. WILL CONTINUE TO MONITOR.
--- NOTE | 2020-05-07 12:34 | NUR ---
COVID ANTIGEN NEGATIVE. REMOVED ISOLATION PRECAUTIONS
--- NOTE | 2020-05-07 14:05 | NUR ---
PT SITTING UP IN CHAIR WATCHING TV. RESP ARE EVEN AND UNLABORED. NO DISTRESS NOTED. CALL LIGHT IN REACH. WILL CONTINUE TO MONITOR.
--- NOTE | 2020-05-07 16:23 | NUR ---
PT SITTING UP IN RECLINER WATCHING TV. RESP ARE EVEN AND UNLABORED.NO DISTRESS NOTED. CALL LGT IN REACH. WILL CONTINUE TO MONITOR.
--- NOTE | 2020-05-07 17:54 | NUR ---
pt sitting up in recliner eating dinner. call light in reach. will continue to monitor.
--- NOTE | 2020-05-07 20:10 | NUR ---
sitting in bedside chair. denies distress. ekg monitor tech shows sinus rhythm hr 88. #20 nichol. po fluids taken fair. voids per urinal. urine michael colored. bilat feet shackled. guards x2 outside glass door. fall precautions cont. mylanta 30cc given per request for "gas."
--- NOTE | 2020-05-07 22:06 | NUR ---
PATIENT TOLERATES HEPARIN INJECTION. ICED WATER PROVIDED. NO NEEDS OR COMPLAINTS AT THIS TIME.
[2020-05-08] VITALS (8 sets, daily range): BP systolic 94–114; BP diastolic 42–87
--- NOTE | 2020-05-08 00:01 | NUR ---
eyes closed. no distress. rn neonatal shows sinus rhythm hr 94.
--- NOTE | 2020-05-08 02:00 | NUR ---
resting quietly. nad. secured entrance monitor shows sinus rhythm freq pvcs hr 94.
--- NOTE | 2020-05-08 04:00 | NUR ---
watching tv. nad. guards x2 remain.
--- NOTE | 2020-05-08 05:35 | NUR ---
lab here. blood drawn.
[2020-05-08 06:08] LABS: HEMATOCRIT 46.8 % (39.0-50.0); HEMOGLOBIN 14.8 g/dl (14.0-18.0); IMMATURE GRANULOCYTES 2.3 % (0.0-5.0); MEAN CELL VOLUME 91.6 fL CALC (80.0-100.0); MEAN CORPUSCULAR HGB CONC 31.6 g/dL CAL (32.0-36.0); NEUT# 11.62 thou/uL (1.82-7.42); RED BLOOD COUNT 5.11 mill/uL (4.70-6.10); RED CELL DISTRI WIDTH 14.2 % (11.5-15.5)
[2020-05-08 06:37] LABS: ALBUMIN 3.3 g/dL (3.2-5.0); ALKALINE PHOSPHATASE 61 u/l (38-126); BILIRUBIN, TOTAL 2.7 mg/dL (0.0-1.4); BUN 38 mg/dL (9-20); BUN/CREATININE RATIO 43 (12-20 (CALC)); CARBON DIOXIDE 21 mmol/l (22-30); CHLORIDE 104 mmol/l (95-108); CREATININE 0.9 mg/dL (0.7-1.3); GFR > 60 ML/MIN (>=60 (CALC)); GFR FOR AFR.AMER. > 60 ML/MIN (>=60 (CALC)); SGOT/AST 234 u/l (17-59); SODIUM 131 mmol/l (137-146); TOTAL PROTEIN 5.7 g/dL (6.3-8.2)
[2020-05-08 06:38] LABS: ANION GAP 12 (6-22 (CALC)); POTASSIUM 5.7 mmol/l (3.5-5.1)
--- NOTE | 2020-05-08 06:45 | NUR ---
REPORT RECEIVED FROM MARQUES ALLEN. CARE ASSUMED.
--- NOTE | 2020-05-08 07:15 | NUR ---
PT RESTING IN BED AWAKE. PT IS ALERT AND ORIENTED X3. SHIFT ASSESSMENT COMPLETED AT THIS TIME. IV PATENT X1. CALL LIGHT IN REACH. WILL CONTINUE TO MONITOR.
--- NOTE | 2020-05-08 08:15 | NUR ---
DR MORAN AT BEDSIDE AT THIS TIME.
--- NOTE | 2020-05-08 10:00 | NUR ---
PT SITTING UP IN BED WATCHING TV. RESP ARE EVEN AND UNLABORED. NO DISTRESS NOTED. CALL LIGHT IN REACH. WILL CONTINUE TO MONTIOR.
--- NOTE | 2020-05-08 10:29 | NUR ---
ANN OF [facility] PHONED FOR UPDATE. UPDATE PROVIDED.
--- NOTE | 2020-05-08 10:59 | NUR ---
[facility]SA AND DON PHONED QUESTIONING WHEN PT WOULD RETURN EXPLAINED THAT HE HAS TRANFER ORDERS. THEN QUESTIONED IF PT HAD WORSENED. EXPLAINED IN DETAL ALL LAB RESULTS, IMAGING RESULTS, ECHO. [facility]SA STATED THAT THE OFFICER CALLED AND SAID IF THEY HAD A LIFE [facility] THAT THE PATIENT COULD GO BACK EXPLAINED THAT I DO NOT HAVE ORDERS FOR THAT. I DID REACH OUT TO DR MARINA WITH [facility].
--- NOTE | 2020-05-08 11:07 | NUR ---
PHONED [facility] TO ASK STATUS OF TRANSFER. MIGUEL STATES THAT THEY ARE STILL PENDING BEDS. DR MARINA UPDATED
--- NOTE | 2020-05-08 12:00 | NUR ---
PT SITTING UP IN BED EATING LUNCH. RESP ARE EVEN AND UNLABORED. NO DISTRESS NOTED. CALL LIGHT IN MARCELLE. WILL OCNTINUE TO MONITOR.
--- NOTE | 2020-05-08 12:51 | NUR ---
PT ASSISTED UP TO BATHROOM FOR BM THEN ASSISTED BACK TO BED. GUARD IN ROOM
--- NOTE | 2020-05-08 14:00 | NUR ---
PT RESTING IN BED AWAKE AND WATCHING TV. RESP ARE EVEN AN DUNLABORED. NO DISTRESS NOTED. IV DUE TO BE CHANGE. LAST TWO IVS WERE PLACED UNDER ULTRASOUND. PT IS A POSSIBLE DC WITH [facility] TOMORROW WILL RE EVALUATE IV AT THAT TIME. CALL LIGHT IN REACH. WILL CONTINUE TO MONITOR.
--- NOTE | 2020-05-08 14:26 | NUR ---
KWAME IGNACIO APRN CALLED [facility] TO HAVE CONSULT NOTE AND EXHO REPORT FAXED TO ALYSSA THE [facility] REP. PAPERWORK FAXED TO . CONTACT PHONE NUMBER IF NEEDED [phone]
--- NOTE | 2020-05-08 16:10 | NUR ---
PT RESTING UP IN BED WATCHING TV. RESP ARE EVEN AND UNLABORED. NO DISTRESS NOTED. CALL LIGHT IN REACH. WILL CONTINUE TO MONITOR
--- NOTE | 2020-05-08 16:33 | NUR ---
BED ASSIGNMENT RECEIVED FOR [facility] [id number]. [phone].
--- NOTE | 2020-05-08 16:35 | NUR ---
PHONED [facility] TO ARRANGE TRANSPORT
--- NOTE | 2020-05-08 17:22 | NUR ---
[facility] ON UNIT. REPORT PROVIDED. PT LEFT VIA STRETCHER IN STABLE CONDITION.
--- NOTE | 2020-05-08 17:26 | NUR ---
REPORT CALLED TO RENU AT [facility] AT [phone].
== END 2020-05-08 17:22 | disposition short-term general hospital (02) | DRG 291 ==
LOC: ED 16:25 → ED-I 18:10 → ED 18:24 → ICU 18:25
PROVIDERS: Family Medicine; Internal Medicine; Nurse Practitioner; ADMIT Internal Medicine; ATTEND Internal Medicine
PROC: 5A09357 Assistance with Respiratory Ventilation, Less than 24 Consecutive Hours, Continuous Positive Airway Pressure (ICD-10-PCS; principal; 2020-04-30)
PROC: 3E02340 Introduction of Influenza Vaccine into Muscle, Percutaneous Approach (ICD-10-PCS; 2020-05-02)
DX: I50.21 Acute systolic (congestive) heart failure (principal); U07.1 COVID-19; J44.1 Chronic obstructive pulmonary disease with (acute) exacerbation; I47.2 Ventricular tachycardia; N17.9 Acute kidney failure, unspecified; I42.0 Dilated cardiomyopathy; I49.3 Ventricular premature depolarization; I95.2 Hypotension due to drugs; T46.2X5A Adverse effect of other antidysrhythmic drugs, initial encounter; T44.7X5A Adverse effect of beta-adrenoreceptor antagonists, initial encounter; T50.2X5A Adverse effect of carbonic-anhydrase inhibitors, benzothiadiazides and other diuretics, initial encounter; R74.8 Abnormal levels of other serum enzymes; E87.5 Hyperkalemia; Z82.49 Family history of ischemic heart disease and other diseases of the circulatory system; Z87.891 Personal history of nicotine dependence; Z23 Encounter for immunization
CPT/HCPCS: J0282; Q9967